=== PATIENT | male | born 1970 | race Two or more races ===

== ENCOUNTER 2022-04-03 07:25 | Day surgery (SDC) | payer MEDICAID ==
[~2022-04-03] VITALS: Ht 165.1 cm; Wt 56.7 kg
[~2022-04-03 07:25] MED LIST: ATOR10TA PO; CARV3.1240 PO; GABA300C10 PO; HYDR50TA15 PO; ISOS10TA2 PO
[2022-04-03] MEDS ORDERED: IODIXANOL 320MG/ML 100ML BTL IV ONE (07:30)
[2022-04-03] MEDS ORDERED: HEPARIN IN NS 1000Units/500mL 1,500 ML ONE (07:30)
[2022-04-03] MEDS ORDERED: LIDOCAINE 2%HCL (LOCAL ANESTH.) INJ 10ml MDV ONE (07:44)
[2022-04-03] MEDS ORDERED: fentaNYL CITRATE 100 MCG/2 ML VL ONE (08:02)
[2022-04-03] MEDS ORDERED: SODIUM CHL 0.9% 0 ML ONE (08:02)
[2022-04-03] MEDS ORDERED: MIDAZOLAM HCL 2MG/2ML 2ml VIAL (1mg/ml) ONE (08:02)
[2022-04-03] MEDS ORDERED: ANGIOMAX 250 MG VIAL IV ONE (08:02)
[2022-04-03] MEDS ORDERED: VERAPAMIL 2.5MG/ML INJ 2ML VIAL IV ONE (08:09)
[2022-04-03] MEDS ORDERED: HEPARIN SODIUM (PORCINE) 5000 UNITS/ML 1ML VIAL ONE (08:10)
[2022-04-03] MEDS ORDERED: hydrALAZINE HCL 20 MG/ML VL IV ONE (10:45)
[2022-04-03] MEDS ORDERED: amLODIPine BESYLATE 5 MG TAB ONE (12:21)
[2022-04-03] MEDS ORDERED: amLODIPine BESYLATE 5 MG TAB PO ONE (12:30)
== END 2022-04-03 13:00 | disposition home or self-care (01) ==
LOC: CATH 07:25
PROVIDERS: ATTEND Internal Medicine Cardiovascular Disease
DX: R94.39 Abnormal result of other cardiovascular function study (principal); I25.10 Atherosclerotic heart disease of native coronary artery without angina pectoris; I10 Essential (primary) hypertension; E78.5 Hyperlipidemia, unspecified; E11.9 Type 2 diabetes mellitus without complications; Z99.2 Dependence on renal dialysis; Z20.822 Contact with and (suspected) exposure to COVID-19
CPT/HCPCS: 93458; C1769; C1887; C1894; J0360; J1644; J2001; J2250; J3010; Q9967; U0003; 99152; 99153

== ENCOUNTER 2022-06-17 15:54 | Inpatient (IN) | payer MEDICAID ==
[~2022-06-17] VITALS: Ht 167.6 cm; Wt 55.2 kg
[2022-06-17 18:12] LABS: Basophils # (auto) 0 10 ^3/uL (0-0.2); Basophils % (auto) 0.3 % (0.0-2.0); Eosinophils # (auto) 0 10 ^3/uL (0-0.8); Hematocrit 25.2 % (41.0-53.0); Lymphocytes # (auto) 0.3 10 ^3/uL (0.4-5.4); Monocytes # (auto) 0.3 10 ^3/uL (0-1.3); Neutrophils % (auto) 83.4 % (37.0-80.0); Nucleated Red Blood Cells % 0.1 %
[2022-06-17 18:14] LABS: Eosinophils % (auto) 0.8 % (0.0-7.0); Hemoglobin 8.2 g/dL (13.5-17.5); Lymphocytes % (auto) 7.3 % (10.0-50.0); Mean Corpuscular Hemoglobin 32.7 pg (28.0-32.0); Mean Corpuscular Hgb Conc. 32.7 g/dL (32.0-36.0); Mean Corpuscular Volume 100.3 fL (80.0-100.0); Monocytes % (auto) 8.2 % (0.0-12.0); Neutrophils # (auto) 3.5 10 ^3/uL (1.6-8.6); Red Blood Cells 2.51 10^6/uL (4.5-5.90); Red Cell Distribution Width 14.7 % (11.8-14.3); White Blood Cell 4.2 10^3/uL (4.4-10.8)
[2022-06-17 18:41] LABS: Albumin 2.4 g/dL (3.4-5.0); Magnesium 1.6 mg/dL (1.6-2.6); Potassium 4.1 mmol/L (3.5-5.1)
[2022-06-17 18:44] LABS: BUN/Creatinine Ratio 9.2
[2022-06-17 18:46] LABS: Bilirubin, Total 0.4 mg/dL (0.2-1.0); Total Protein 5.8 g/dL (6.4-8.2)
[2022-06-17] MEDS ORDERED: DEXTROSE (50%) 50ML SYRG IV PRN (20:45)
[2022-06-17] MEDS ORDERED: NITROGLYCERIN 0.4 MG SL TAB SL PRN (20:45)
[2022-06-17] MEDS ORDERED: ACETAMINOPHEN 325 MG TAB PO PRN (20:45)
[2022-06-17] MEDS ORDERED: ONDANSETRON HCL 4 MG/2 ML VIAL IV PRN (20:45)
[2022-06-17] MEDS ORDERED: MORPHINE SULFATE INJ 2 MG/ml SYRG IV PRN (20:45)
[2022-06-17] MEDS ORDERED: ATORVASTATIN 20 MG TAB PO SCH (22:00)
[2022-06-17] MEDS: ISOSORBIDE MONONITRATE 20 MG TAB PO SCH (22:06)
[2022-06-17] MEDS: hydrALAZINE HCL 25 MG TAB PO SCH (22:07)
[2022-06-17] MEDS: CARVEDILOL 3.125 MG TAB PO SCH (22:07)
[2022-06-18] MEDS: ACCU-CHEK COMFORT CURVE STRIP VI SCH ×5 (01:20→23:13)
[2022-06-18] MEDS: InsuLIN REG 1unit/0.01ml Soln (100units/ml) SC SCH ×5 (01:25→23:18)
[2022-06-18 05:54] LABS: Basophils # (auto) 0 10 ^3/uL (0-0.2); Eosinophils # (auto) 0.1 10 ^3/uL (0-0.8); Lymphocytes # (auto) 0.5 10 ^3/uL (0.4-5.4); Monocytes # (auto) 0.5 10 ^3/uL (0-1.3)
[2022-06-18 05:56] LABS: Basophils % (auto) 0.6 % (0.0-2.0); Eosinophils % (auto) 1.9 % (0.0-7.0); Hematocrit 22.8 % (41.0-53.0); Hemoglobin 7.5 g/dL (13.5-17.5); Lymphocytes % (auto) 14.3 % (10.0-50.0); Mean Corpuscular Volume 99.9 fL (80.0-100.0); Monocytes % (auto) 13.2 % (0.0-12.0); Neutrophils # (auto) 2.6 10 ^3/uL (1.6-8.6); Nucleated Red Blood Cells % 0.1 %; Red Blood Cells 2.28 10^6/uL (4.5-5.90); Red Cell Distribution Width 14.3 % (11.8-14.3); White Blood Cell 3.7 10^3/uL (4.4-10.8)
[2022-06-18 06:13] LABS: Albumin 2.1 g/dL (3.4-5.0); BUN/Creatinine Ratio 8.7; Calcium 6.7 mg/dL (8.5-10.1); Potassium 4.6 mmol/L (3.5-5.1)
[2022-06-18 06:16] LABS: Bilirubin, Total 0.3 mg/dL (0.2-1.0); Total Protein 5.6 g/dL (6.4-8.2)
[2022-06-18] MEDS: SODIUM CHL 0.9% 1000 ML BAG XX ONE ×2 (07:00→08:32)
[2022-06-18] MEDS: CARVEDILOL 3.125 MG TAB PO SCH ×2 (09:41→23:17)
[2022-06-18] MEDS: ASPirin 81 mg TAB PO SCH (09:41)
[2022-06-18] MEDS: PANTOPRAZOLE 40 MG TAB PO SCH (09:42)
[2022-06-18] MEDS: ISOSORBIDE MONONITRATE 20 MG TAB PO SCH (09:42)
[2022-06-18] MEDS: hydrALAZINE HCL 25 MG TAB PO SCH ×2 (09:49→22:00)
[2022-06-18] MEDS: NIFEdipine ER 30 MG TAB PO SCH (09:52)
[2022-06-18 15:50] VITALS: BP 129/67
[2022-06-18] MEDS: CALCIUM ACETATE 667 MG CAP PO SCH (17:04)
[2022-06-18] MEDS ORDERED: LORazepam 2MG/ML-1ML VIAL IV PRN (19:15)
[2022-06-18 20:29] LABS: Folate (Folic Acid) 7.85 ng/mL (5.38-24)
[2022-06-18] MEDS ORDERED: EPOETIN ALFA-EPBX 10,000 UNIT/1ML VIAL SC ONE (21:00)
[2022-06-18 22:00] VITALS: BP 110/64
[2022-06-18] MEDS ORDERED: ATORVASTATIN 20 MG TAB PO SCH (22:00)
[2022-06-18] MEDS ORDERED: GABAPENTIN 300 MG CAP PO SCH (22:00)
[2022-06-18] MEDS: ISOSORBIDE DINITRATE 10 MG TAB PO SCH (23:16)
[2022-06-19 05:00] VITALS: BP 120/67
[2022-06-19 05:01] LABS: BUN/Creatinine Ratio 6.9; Potassium 4.9 mmol/L (3.5-5.1)
[2022-06-19] MEDS: InsuLIN REG 1unit/0.01ml Soln (100units/ml) SC SCH ×3 (06:00→17:47)
[2022-06-19] MEDS: ACCU-CHEK COMFORT CURVE STRIP VI SCH ×3 (06:39→17:48)
[2022-06-19] MEDS: CALCIUM ACETATE 667 MG CAP PO SCH ×3 (07:45→17:47)
[2022-06-19 07:53] VITALS: BP 129/64
[2022-06-19] MEDS ORDERED: ADENOSINE 46 MG in GIVE UN-DILUTED 0 ML IV ONE (08:45)
[2022-06-19 09:00] VITALS: BP 129/64
[2022-06-19] MEDS: CARVEDILOL 3.125 MG TAB PO SCH (12:55)
[2022-06-19] MEDS: hydrALAZINE HCL 25 MG TAB PO SCH (12:55)
[2022-06-19] MEDS: ASPirin 81 mg TAB PO SCH (12:56)
[2022-06-19] MEDS: ISOSORBIDE DINITRATE 10 MG TAB PO SCH (12:56)
[2022-06-19] MEDS: PANTOPRAZOLE 40 MG TAB PO SCH (12:56)
[2022-06-19] MEDS: NIFEdipine ER 30 MG TAB PO SCH (12:56)
[2022-06-19 13:00] VITALS: BP 138/73
[2022-06-19] MEDS ORDERED: ASPI-325 PO (16:19)
[2022-06-19 16:55] VITALS: BP 136/77
== END 2022-06-19 19:00 | disposition home or self-care (01) | DRG 144 ==
LOC: EDBD 15:54 → ER 15:54 → TELE 21:02 → TELE-CENTR 06-18 15:54
PROVIDERS: ADMIT Nurse Practitioner; ATTEND Hospitalist
PROC: 5A1D70Z Performance of Urinary Filtration, Intermittent, Less than 6 Hours Per Day (ICD-10-PCS; principal; 2022-06-18)
DX: R09.02 Hypoxemia (principal); I13.2 Hypertensive heart and chronic kidney disease with heart failure and with stage 5 chronic kidney disease, or end stage renal disease; E43 Unspecified severe protein-calorie malnutrition; I95.3 Hypotension of hemodialysis; E11.22 Type 2 diabetes mellitus with diabetic chronic kidney disease; N18.6 End stage renal disease; D63.1 Anemia in chronic kidney disease; G40.209 Localization-related (focal) (partial) symptomatic epilepsy and epileptic syndromes with complex partial seizures, not intractable, without status epilepticus; J91.8 Pleural effusion in other conditions classified elsewhere; E78.5 Hyperlipidemia, unspecified; H54.7 Unspecified visual loss; Z20.822 Contact with and (suspected) exposure to COVID-19; F03.90 Unspecified dementia, unspecified severity, without behavioral disturbance, psychotic disturbance, mood disturbance, and anxiety; H54.3 Unqualified visual loss, both eyes; I25.10 Atherosclerotic heart disease of native coronary artery without angina pectoris; I50.22 Chronic systolic (congestive) heart failure; Z86.16 Personal history of COVID-19; Z87.01 Personal history of pneumonia (recurrent); Z99.2 Dependence on renal dialysis; Z68.1 Body mass index [BMI] 19.9 or less, adult
CPT/HCPCS: 36415; 70551; 71045; 78452; 80048; 80053; 82607; 82746; 82962; 83735; 83880; 84100; 84443; 84484; 85025; 90935; 93005; 93017; 93306; 93886; 95819; 99291; G0378; J0153; J1815